=== PATIENT | male | born 1985 | race Caucasian/White ===

== ENCOUNTER 2022-09-09 00:32 | Emergency (ER) | payer OTHER ==
[~2022-09-09] VITALS: Ht 172.7 cm; Wt 97.5 kg
--- NOTE | 2022-09-09 01:05 | NUR ---
TO ER BED 12. BIBS C/O COUGH X 2 MONTHS. PT IS ALERT AND ORIENTED. RR EVEN AND NON LABORED. CONNECTED TO MONITOR. O2 SAT 97% ROOM AIR. AWAITING MD ORDERS
[2022-09-09] MEDS ORDERED: Magnesium 1GM/D5W 100ML PREMIX 200 ML IV ONE (01:27)
[2022-09-09] MEDS ORDERED: methylPREDNISolone SOD SUCC 125 MG/2ML VIAL ONE (01:27)
[2022-09-09] MEDS ORDERED: ALBUTEROL FS 2.5 MG/3 ML VIAL.NEB CONTNEB ONE ×3 (01:30→04:00)
[2022-09-09] MEDS ORDERED: methylPREDNISolone SOD SUCC 125 MG/2ML VIAL IV ONE (01:30)
[2022-09-09] MEDS ORDERED: IPRATROPIUM NEB FS 0.5 MG/2.5 ML AMPUL.NEB NEB ONE ×4 (01:30→08:00)
[2022-09-09] MEDS ORDERED: LIDOCAINE SOLN 4% 50 ML BOTTLE TP ONE (01:30)
[2022-09-09] MEDS ORDERED: ALBUTEROL FS 2.5 MG/3 ML VIAL.NEB ONE ×5 (01:40→07:51)
[2022-09-09 01:43] LABS: BASOPHILS # (AUTO) 0.1 K/uL (0.0-0.2); BASOPHILS % (AUTO) 1.5 % (0.0-2.0); EOSINOPHILS % (AUTO) 6.2 % (0.0-6.0); HEMATOCRIT 44 % (39-51); HEMOGLOBIN 14.5 g/dL (13.5-17.5); LYMPHOCYTES # (AUTO) 2.6 K/uL (0.8-4.8); LYMPHOCYTES % (AUTO) 28.2 % (20.0-44.0); MEAN CORPUSCULAR HGB CONC 33 g/dl (31.0-36.0); MEAN CORPUSCULAR VOLUME 83 fL (80-96); MONOCYTES # (AUTO) 0.9 K/uL (0.1-1.30); MONOCYTES % (AUTO) 9.6 % (2.0-12.0); NEUTROPHILS % (AUTO) 54.5 % (43.0-81.0); PLATELET COUNT (AUTO) 270 K/uL (150-450); RED BLOOD CELL COUNT(AUTO) 5.33 MIL/uL (4.5-6.0); WHITE BLOOD COUNT (AUTO) 9.2 K/uL (4.3-11.0)
[2022-09-09] MEDS: Magnesium 1GM/D5W 100ML PREMIX 100 ML IV SCH ×2 (01:46→02:53)
--- NOTE | 2022-09-09 01:47 | NUR ---
IV LINE ESTABLISHED, [id number]
--- NOTE | 2022-09-09 01:48 | NUR ---
BLOOD COLLECTED AND SENT TO LAB
--- NOTE | 2022-09-09 01:51 | NUR ---
XRAY AT BEDSIDE
[2022-09-09 01:52] LABS: CALCIUM, SERUM 9.1 mg/dL (8.5-10.1); POTASSIUM 3.8 mmol/L (3.5-5.1)
[2022-09-09] MEDS ORDERED: LIDOCAINE 4% PF AMPUL 40 MG/ML AMPUL ONE (01:58)
[2022-09-09] MEDS ORDERED: IPRATROPIUM NEB FS 0.5 MG/2.5 ML AMPUL.NEB ONE ×3 (01:59→07:51)
[2022-09-09 02:10] LABS: BILIRUBIN,TOTAL 0.2 mg/dL (0.2-1.0); TOTAL PROTEIN, SERUM 7.4 g/dL (6.4-8.2)
[2022-09-09] MEDS ORDERED: PRED50TA PO (02:49)
[2022-09-09] MEDS ORDERED: NEBU-171 MC (02:49)
[2022-09-09] MEDS ORDERED: NICO2GUM9 BC (02:49)
[2022-09-09] MEDS ORDERED: ALBU18HF2 INH (02:49)
[2022-09-09] MEDS ORDERED: NICO2LOZ BC (02:49)
[2022-09-09] MEDS ORDERED: ALBU2.5V13 NEB (02:49)
[2022-09-09] MEDS ORDERED: BUDE10.22 INH (02:49)
--- NOTE | 2022-09-09 05:14 | NUR ---
COVID SWAB COLLECTED
--- NOTE | 2022-09-09 07:45 | NUR ---
PER DR. CHILDRESS'S REQUEST, CALLED RESPIRATORY FOR A BREATHING
[2022-09-09] MEDS ORDERED: ALBUTEROL FS 2.5 MG/0.5 ML VIAL.NEB ONE (07:51)
[2022-09-09] MEDS ORDERED: ALBUTEROL FS 2.5 MG/3 ML VIAL.NEB NEB ONE (08:00)
--- NOTE | 2022-09-09 09:57 | NUR ---
LOUIE, ROTOR BALANCER FROM [facility], CALLED. WORKING ON GETTING PT A BED THERE. NUMBER IS [phone]
--- NOTE | 2022-09-09 10:58 | NUR ---
PT ACCEPTED FOR [facility]. [facility] WILL PICK PT UP, ETA 1130. FAXING OVER [facility] TO [phone].
--- NOTE | 2022-09-09 11:09 | NUR ---
[facility] BED 543-B , PER LOUIE [facility] HOS
--- NOTE | 2022-09-09 11:30 | NUR ---
PT REPORT GIVEN TO LENO ZAMAN AT [facility] ([id number]).
[2022-09-09 11:40] VITALS: BP 119/75
--- NOTE | 2022-09-09 12:05 | NUR ---
TRANSPORTATION ARRIVED, PT TRANSFERRED IN STABLE CONDITION.
== END 2022-09-09 12:07 | disposition short-term general hospital (02) ==
LOC: ER 00:33
DX: J98.01 Acute bronchospasm (principal); Z20.822 Contact with and (suspected) exposure to COVID-19; F17.200 Nicotine dependence, unspecified, uncomplicated; R09.02 Hypoxemia; Z86.69 Personal history of other diseases of the nervous system and sense organs
CPT/HCPCS: 99291; 96365; 96375; 87426; 71045; 85025; 36415; 80053; 87081; 94799; 94640 ×3; J3490; J2930; J3475; C9803

== ENCOUNTER 2022-11-07 09:11 | Emergency (ER) | payer OTHER ==
[~2022-11-07] VITALS: Ht 172.7 cm; Wt 97.1 kg
[~2022-11-07 09:11] MED LIST: ALBU18HF2 INH; ALBU2.5V13 NEB; BUDE10.22 INH; NEBU-171 MC; NICO2GUM9 BC; NICO2LOZ BC; PRED50TA PO
--- NOTE | 2022-11-07 09:18 | NUR ---
pt to ed bed 07 c/o cough and congestion, chronic x 1 year. worst for past couple days. placed on monitor. o2 sats 94% on ra. awaiting md motley.
--- NOTE | 2022-11-07 09:24 | NUR ---
dr burns at bedside for eval.
[2022-11-07] MEDS ORDERED: IPRATROPIUM NEB FS 0.5 MG/2.5 ML AMPUL.NEB NEB ONE ×2 (09:30→12:30)
[2022-11-07] MEDS ORDERED: ALBUTEROL FS 2.5 MG/3 ML VIAL.NEB NEB ONE ×2 (09:30→12:30)
[2022-11-07] MEDS ORDERED: predniSONE 20 MG TABLET PO ONE (09:30)
[2022-11-07] MEDS ORDERED: IPRATROPIUM NEB FS 0.5 MG/2.5 ML AMPUL.NEB ONE ×2 (09:35→12:30)
[2022-11-07] MEDS ORDERED: ALBUTEROL FS 2.5 MG/3 ML VIAL.NEB ONE ×2 (09:35→12:30)
--- NOTE | 2022-11-07 09:35 | NUR ---
RT AT BEDSIDE
[2022-11-07] MEDS ORDERED: predniSONE 20 MG TABLET ONE (09:36)
--- NOTE | 2022-11-07 11:23 | NUR ---
VITALS RECHECK, NOTED W/ LOW O2 SATURATION. DR OMER AWARE.
--- NOTE | 2022-11-07 11:39 | NUR ---
covid test sent to lab
[2022-11-07] MEDS ORDERED: Magnesium 1GM/D5W 100ML PREMIX 200 ML IV ONE ×2 (11:42→12:00)
[2022-11-07 12:01] LABS: BASOPHILS % (AUTO) 0.7 % (0.0-2.0); EOSINOPHILS % (AUTO) 3.5 % (0.0-6.0); HEMATOCRIT 43 % (39-51); HEMOGLOBIN 13.8 g/dL (13.5-17.5); MEAN CORPUSCULAR HGB CONC 32 g/dl (31.0-36.0); MEAN CORPUSCULAR VOLUME 82 fL (80-96); MONOCYTES # (AUTO) 0.2 K/uL (0.1-1.30); MONOCYTES % (AUTO) 4.5 % (2.0-12.0); NEUTROPHILS # (AUTO) 3.9 K/uL (1.8-8.9); NEUTROPHILS % (AUTO) 72.3 % (43.0-81.0); PLATELET COUNT (AUTO) 267 K/uL (150-450); RED BLOOD CELL COUNT(AUTO) 5.22 MIL/uL (4.5-6.0); WHITE BLOOD COUNT (AUTO) 5.4 K/uL (4.3-11.0)
[2022-11-07 12:09] LABS: CALCIUM, SERUM 8.9 mg/dL (8.5-10.1); CARBON DIOXIDE 29 mmol/L (21-32); CHLORIDE 104 mmol/L (98-107); CREATININE 0.8 mg/dL (0.6-1.3); GLUCOSE 107 mg/dL (74-106); SODIUM SERUM 139 mmol/L (136-145); UREA NITROGEN, BLOOD 17 mg/dL (7-18)
--- NOTE | 2022-11-07 12:11 | NUR ---
NOTIFIED BY SADE HEAT TREAT OPERATOR THAT THE PT IS ACCEPTED TO [facility] UNDER THE CARE OF DR. RICHARDSON. AWAITING A CALL BACK WITH NUMBER FOR REPORT AND ETA FOR TRANSPORT FOR THE PT
[2022-11-07 12:16] LABS: ALANINE AMINOTRANSFERASE 23 U/L (12-78); ALKALINE PHOSPHATASE 72 U/L (46-116); ASPARTATE AMINOTRANSFERASE 19 U/L (15-37); BILIRUBIN,DIRECT 0.1 mg/dL (0.0-0.2); BILIRUBIN,TOTAL 0.2 mg/dL (0.2-1.0); TOTAL PROTEIN, SERUM 7.6 g/dL (6.4-8.2)
--- NOTE | 2022-11-07 12:32 | NUR ---
RT BACK AT BEDSIDE FOR BREATHING TREATMENT.
--- NOTE | 2022-11-07 13:23 | NUR ---
HAND MOLDER [employer]STER CALLED WITH ACCEPTANCE INFO ROOM 209B NUMBER FOR REPORT [phone] OR [phone] ETA [id number] THE CARE OF DR. RICHARDSON
[2022-11-07 13:40] VITALS: BP 120/71
[2022-11-07] MEDS ORDERED: PRED50TA PO (14:07)
[2022-11-07] MEDS ORDERED: ALBU18HF2 INH (14:07)
--- NOTE | 2022-11-07 14:48 | NUR ---
REPORT GIVEN TO FLORY BURR AT [facility] PENDING TRANSFER.
--- NOTE | 2022-11-07 17:02 | NUR ---
TRANSPORTED TO [facility] IN STABLE CONDITION.
== END 2022-11-07 17:04 | disposition short-term general hospital (02) ==
LOC: ER 09:19
DX: J98.01 Acute bronchospasm (principal); R09.02 Hypoxemia; F17.200 Nicotine dependence, unspecified, uncomplicated; Z20.822 Contact with and (suspected) exposure to COVID-19; Z79.51 Long term (current) use of inhaled steroids; Z79.899 Other long term (current) drug therapy
CPT/HCPCS: 99291; 96365; 87426; 93005; 71045; 85025; 80048; 80076; 36415; 84484; 94640 ×3; J7512; J3475; C9803; A4223

== ENCOUNTER 2023-01-18 14:07 | Emergency (ER) | payer OTHER ==
[~2023-01-18] VITALS: Ht 172.7 cm; Wt 105.2 kg
--- NOTE | 2023-01-18 14:37 | NUR ---
BIB FOR COUGH AND SOB ON GOING FOR 2 YEAR WORSE "LAST COUPLE DAYS". HAD SINUS SURGERY, AND ON ANTIBIOTIOC. CLAIMS HE HAS A LOT OF INFECTION. DR. DSOUZA AT BEDSIDE FOR EVAL. PUT ON GOWN AND BEDSIDE MONITOR.
--- NOTE | 2023-01-18 14:39 | NUR ---
BIB FOR COUGH AND SOB ON GOING FOR 2 YEAR WORSE "LAST COUPLE DAYS".
--- NOTE | 2023-01-18 14:39 | NUR ---
IV ACCESS INSERTED RT HAND. BLD DRAWN AND SENT TO LAB.
[2023-01-18] MEDS ORDERED: predniSONE 20 MG TABLET ONE (14:57)
[2023-01-18] MEDS ORDERED: Magnesium 1GM/D5W 100ML PREMIX 100 ML IV ONE ×2 (14:59→17:15)
[2023-01-18] MEDS ORDERED: predniSONE 50 MG TABLET PO ONE (15:00)
[2023-01-18] MEDS ORDERED: IPRATROPIUM NEB FS 0.5 MG/2.5 ML AMPUL.NEB NEB ONE ×3 (15:00→23:30)
[2023-01-18] MEDS ORDERED: NICOTINE PATCH (21MG) 21 MG PATCH.TD24 TD ONE (15:00)
[2023-01-18] MEDS: Magnesium 1GM/D5W 100ML PREMIX 100 ML IV SCH ×3 (15:00→16:00)
[2023-01-18] MEDS ORDERED: ALBUTEROL FS 2.5 MG/0.5 ML VIAL.NEB NEB ONE ×2 (15:00→23:30)
[2023-01-18 15:03] LABS: BASOPHILS # (AUTO) 0.1 K/uL (0.0-0.2); BASOPHILS % (AUTO) 1.2 % (0.0-2.0); EOSINOPHILS % (AUTO) 5.1 % (0.0-6.0); HEMATOCRIT 42 % (39-51); HEMOGLOBIN 13.9 g/dL (13.5-17.5); LYMPHOCYTES # (AUTO) 2.2 K/uL (0.8-4.8); MEAN CORPUSCULAR HGB CONC 33 g/dl (31.0-36.0); MEAN CORPUSCULAR VOLUME 82 fL (80-96); MONOCYTES # (AUTO) 0.7 K/uL (0.1-1.30); NEUTROPHILS # (AUTO) 5.1 K/uL (1.8-8.9); NEUTROPHILS % (AUTO) 59.7 % (43.0-81.0); PLATELET COUNT (AUTO) 299 K/uL (150-450); RED BLOOD CELL COUNT(AUTO) 5.07 MIL/uL (4.5-6.0); WHITE BLOOD COUNT (AUTO) 8.6 K/uL (4.3-11.0)
[2023-01-18] MEDS ORDERED: ALBUTEROL FS 2.5 MG/3 ML VIAL.NEB ONE (15:06)
[2023-01-18] MEDS ORDERED: IPRATROPIUM NEB FS 0.5 MG/2.5 ML AMPUL.NEB ONE ×3 (15:06→23:36)
--- NOTE | 2023-01-18 15:11 | NUR ---
EMT AND RT TECH AT BEDSIDE
[2023-01-18 15:15] LABS: CALCIUM, SERUM 8.9 mg/dL (8.5-10.1); CARBON DIOXIDE 25 mmol/L (21-32); CHLORIDE 104 mmol/L (98-107); CREATININE 0.8 mg/dL (0.6-1.3); GLUCOSE 145 mg/dL (74-106); POTASSIUM 3.7 mmol/L (3.5-5.1); SODIUM SERUM 141 mmol/L (136-145); UREA NITROGEN, BLOOD 16 mg/dL (7-18)
--- NOTE | 2023-01-18 15:16 | NUR ---
CALLED [facility], REGARDING NICODERM 21MG PATCH, THEY WILL CALL BACK
[2023-01-18 15:27] LABS: ALANINE AMINOTRANSFERASE 35 U/L (12-78); ALKALINE PHOSPHATASE 66 U/L (46-116); ASPARTATE AMINOTRANSFERASE 24 U/L (15-37); BILIRUBIN,TOTAL 0.4 mg/dL (0.2-1.0); TOTAL PROTEIN, SERUM 7.4 g/dL (6.4-8.2)
--- NOTE | 2023-01-18 18:18 | NUR ---
rt notified with new order
[2023-01-18] MEDS ORDERED: ALBUTEROL FS 2.5 MG/0.5 ML VIAL.NEB ONE ×2 (18:24→23:36)
--- NOTE | 2023-01-18 18:27 | NUR ---
rt tech at bedside
[2023-01-18] MEDS ORDERED: ALBUTEROL FS 2.5 MG/3 ML VIAL.NEB NEB ONE (18:30)
--- NOTE | 2023-01-18 19:35 | NUR ---
COVID SWAB COLLECTED AND SENT TO LAB.
--- NOTE | 2023-01-18 20:00 | NUR ---
SADE TYLER CALLED TO GET UPDATE ON PT.
--- NOTE | 2023-01-18 20:38 | NUR ---
DR DSOUZA ON PHONE CALL WITH DR DAVIS PEER TO [facility]
--- NOTE | 2023-01-18 21:30 | NUR ---
TRANSFER INFO: [facility] ROOM 212-B, RN FOR REPORT [phone], [facility] ETA [phone]
[2023-01-18] MEDS ORDERED: BUDE10.22 INH (22:52)
[2023-01-18] MEDS ORDERED: ALBU18HF2 INH (22:52)
[2023-01-18] MEDS ORDERED: GUAI600T53 PO (22:52)
[2023-01-18] MEDS ORDERED: PRED50TA PO (22:52)
[2023-01-18] MEDS ORDERED: LORA-259 PO (23:38)
[2023-01-19] MEDS ORDERED: PRED50TA PO (00:24)
[2023-01-19] MEDS ORDERED: ALBU18HF2 INH (00:24)
[2023-01-19] MEDS ORDERED: LORA-259 PO (00:24)
[2023-01-19] MEDS ORDERED: BUDE10.22 INH (00:24)
[2023-01-19] MEDS ORDERED: GUAI600T53 PO (00:24)
[2023-01-19 01:36] VITALS: BP 115/68
--- NOTE | 2023-01-19 01:37 | NUR ---
Patient discharged to home in stable condition. Written and verbal after care instructions given. Patient verbalizes understanding of instruction.
== END 2023-01-19 01:38 | disposition home or self-care (01) ==
LOC: ER 14:17
DX: J98.01 Acute bronchospasm (principal); R06.02 Shortness of breath; R55 Syncope and collapse; F17.200 Nicotine dependence, unspecified, uncomplicated; Z79.899 Other long term (current) drug therapy; Z20.822 Contact with and (suspected) exposure to COVID-19
CPT/HCPCS: 99285; 96365; 70450; 71045; 87426; 93005; 96376; 85025; 80048; 80076; 83735; 85378; 36415; 84443; 84484 ×2; 87081; 83880; 94640 ×4; J7512; A4223; J3475 ×2; C9803

== ENCOUNTER 2023-03-02 15:45 | Emergency (ER) | payer OTHER ==
[~2023-03-02] VITALS: Ht 170.2 cm; Wt 78.0 kg
[~2023-03-02 15:45] MED LIST changes: +GUAI600T53 PO; +LORA-259 PO
--- NOTE | 2023-03-02 16:15 | NUR ---
BIB C/O LEFT SIDED CHEST PAIN SINCE LAST NIGHT. PT ALSO C/O COUGH & CONGESTION. AMBULATORY, PLACED IN BED, AAOX4, BREATHING EVEN AND UNLABORED SATURATING AT 96%RA, ATTACHED TO MONITOR SHOWS SUSIE SINUS RHYTHM CO- 75.
[2023-03-02] MEDS ORDERED: IBUPROFEN 600 MG TABLET PO ONE (16:30)
--- NOTE | 2023-03-02 16:30 | NUR ---
X-RAY TECH AT BEDSIDE
[2023-03-02] MEDS ORDERED: IBUPROFEN 600 MG TABLET ONE (16:48)
[2023-03-02] MEDS ORDERED: BENZONATATE 100 MG CAPSULE PO ONE (16:48)
[2023-03-02] MEDS ORDERED: BENZONATATE 100 MG CAPSULE PO PRN (17:00)
[2023-03-02] MEDS ORDERED: BENZ-13 PO (17:51)
--- NOTE | 2023-03-02 17:55 | NUR ---
Patient discharged to home in stable condition. Written and verbal after care instructions given. Patient verbalizes understanding of instruction.
[2023-03-02 18:21] VITALS: BP 115/73; TEMP 98.4
== END 2023-03-02 17:53 | disposition home or self-care (01) ==
LOC: ER 16:07
DX: R05.9 Cough, unspecified (principal); R07.89 Other chest pain; E03.9 Hypothyroidism, unspecified; J45.909 Unspecified asthma, uncomplicated; F17.210 Nicotine dependence, cigarettes, uncomplicated; Z79.899 Other long term (current) drug therapy
CPT/HCPCS: 71045-TC